=== PATIENT | female | born 1995 | race Caucasian/White ===

== ENCOUNTER 2018-01-02 23:07 | Emergency (ER) | payer OTHER ==
[2018-01-02] MEDS ORDERED: ONDANSETRON 4 MG/2 ML VIAL IVP ONE (23:18)
[2018-01-02] MEDS ORDERED: NS 1,000 ML IV ONE (23:18)
[2018-01-02] MEDS ORDERED: HYDROmorphONE/DILAUDID 2 MG/ML INJ IVP ONE (23:18)
--- NOTE | 2018-01-02 23:18 | EDPHY ---
H & P Stated Complaint: PELVIC PAIN X 40 MIN Time Seen by Provider: 01/02/18 23:15 HPI/ROS: HPI CHIEF COMPLAINT: Sudden onset pelvic pain. HISTORY OF PRESENT ILLNESS: This patient very pleasant 22-year-old female she is otherwise healthy with no significant medical history, she has had an appendectomy, she presents emergency room with sudden onset severe 10/10 lower pelvic pain. She describes as sharp stabbing in nature. It was sudden onset approximately 45 min ago. She states she is on her menstrual cycle. Denies being . Denies chest pain or shortness of breath. The pain is located across her lower pelvis. Current level pain 8/10. Patient denies having intercourse. Denies vaginal discharge. Past Medical History: Denies significant medical history Past Surgical History: Denies significant surgical history except for appendectomy. Social History: Denies drugs alcohol tobacco products. Family History: Noncontributory ROS REVIEW OF SYSTEMS: A comprehensive 10 point review of systems is otherwise negative aside from elements mentioned in the history of present illness. Exam Constitutional appears well nontoxic no acute distress, triage nursing summary reviewed, vital signs reviewed, awake/alert. Eyes normal conjunctivae and sclera, EOMI, PERRLA. HENT normal inspection, atraumatic, moist mucus membranes, no epistaxis, neck supple/ no meningismus, no raccoon eyes. Respiratory clear to auscultation bilaterally, normal breath sounds, no respiratory distress, no wheezing. Cardiovascular rate normal, regular rhythm, no murmur, no edema, distal pulses normal. Gastrointestinal mild tender palpation in the pelvic region suprapubic and both adnexa,, no rebound, no guarding, normal bowel sounds, no distension, no pulsatile mass. Genitourinary no CVA tenderness. Musculoskeletal no midline vertebral tenderness, full range of motion, no calf swelling, no tenderness of extremities, no meningismus, good pulses, neurovascularly intact. Skin pink, warm, & dry, no rash, skin atraumatic. Neurologic awake, alert and oriented x 3, AAOx3, moves all 4 extremities equally, motor intact, sensory intact, CN II-XII intact, normal cerebellar, normal vision, normal speech. Psychiatric normal mood/affect. Heme/Lymph/Immune no lymphadenopathy. Differential diagnosis includes but is not limited to and in no particular order : Ruptured ovarian cyst, ovarian torsion, intra-abdominal free fluid Bowel obstruction, gallbladder disease, diverticulitis, colitis, enteritis, perforated viscus, gastritis, GERD, esophagitis, urinary tract infection, pyelonephritis, kidney stones Medical Decision Making: Plan for this patient IV establishment IV Dilaudid 1 mg for pain control, IV Zofran 4 mg for nausea, ultrasound of the pelvis, check basic blood work, test, re-evaluate. Re-evaluation: 0322: Patient re-evaluated this time resting comfortably abdomen is soft nontender. She is not vomiting. She states her pain is completely resolved. She would like to go home. I explained I do not have a great explanation for her sudden onset pelvic pain. She is not having intercourse she denies any vaginal discharge. She is currently on her menstrual cycle. On her ultrasound of her pelvis there is no evidence of significant free fluid or ruptured ovarian cyst. Dr. oRy read her ultrasound called to me states normal ultrasound. This was a transabdominal ultrasound done for pelvic pain as she is not having intercourse. Patient's blood work was reviewed. Additionally ultrasound reviewed. Blood work is reassuring urinalysis shows trace blood she is on her current menstrual cycle. She has had an appendectomy. I did discuss strict return precautions with her she feels comfortable going home. We talked about CT imaging however she has declined CT imaging at this time as her abdominal pain is gone. She does understand return emergency room she develops worsening abdominal pain fever vomiting. She has had an appendectomy. She feels comfortable this plan. Again return precautions discussed with her. It is possible that she ruptured a small ovarian cyst there is trace free fluid in the cul de sac: The ultrasound. Source: Patient - Personal History LMP (Females 10-55): Now Current Tetanus Diphtheria and Acellular Pertussis (TDAP): Yes - Medical/Surgical History Hx Asthma: No Hx Chronic Respiratory Disease: No Hx Diabetes: No Hx Cardiac Disease: No Hx Renal Disease: No Hx Cirrhosis: No Hx Alcoholism: No Hx HIV/AIDS: No Hx Splenectomy or Spleen Trauma: No Other PMH: APPENDECTOMY 2016, "CUT OUT PIECE OF INTESTINE" 2016 - Social History Smoking Status: Never smoked Constitutional: Initial Vital Signs Temperature (C) 36.3 C 01/02/18 23:14 Heart Rate 95 01/02/18 23:14 Respiratory Rate 20 01/02/18 23:14 Blood Pressure 135/83 H 01/02/18 23:14 O2 Sat (%) 99 01/02/18 23:14 O2 Delivery Mode Room Air Allergies/Adverse Reactions: No Known Allergies Allergy (Unverified 01/02/18 23:25) Home Medications: Medication Instructions Recorded NK [No Known Home Meds] 01/02/18 Medical Decision Making - Data Points Laboratory Results: Laboratory Results 01/02/18 23:29 01/02/18 23:29 01/03/18 01/02/18 01/02/18 00:48 23:29 23:29 WBC RBC Hgb Hct MCV MCH MCHC RDW Plt Count MPV Neut % (Auto) Lymph % (Auto) [place] % (Auto) Eos % (Auto) Baso % (Auto) Nucleat RBC Rel Count Absolute Neuts (auto) Absolute Lymphs (auto) Absolute Monos (auto) Absolute Eos (auto) Absolute Basos (auto) Absolute Nucleated RBC Immature Gran % Immature Gran # Sodium 140 mEq/L mEq/L (135-145) Potassium 3.7 mEq/L mEq/L (3.5-5.2) Chloride 103 mEq/L mEq/L (97-110) Carbon Dioxide 23 mEq/l mEq/l (22-31) Anion Gap 14 mEq/L mEq/L (8-16) BUN 9 mg/dL mg/dL (7-23) Creatinine 0.7 mg/dL mg/dL (0.6-1.0) Estimated GFR > 60 Glucose 89 mg/dL mg/dL (70-100) Calcium 9.3 mg/dL mg/dL (8.5-10.4) Total Bilirubin 0.4 mg/dL mg/dL (0.1-1.4) Conjugated Bilirubin 0.3 mg/dL mg/dL (0.0-0.5) Unconjugated Bilirubin 0.1 mg/dL mg/dL (0.0-1.1) AST 23 IU/L IU/L (14-46) ALT 34 IU/L IU/L (9-52) Alkaline Phosphatase 56 IU/L IU/L (38-126) Total Protein 7.9 g/dL g/dL (6.3-8.2) Albumin 4.6 g/dL g/dL (3.5-5.0) Lipase 169 IU/L IU/L (23-300) Beta HCG, Qual NEGATIVE Urine Color YELLOW Urine Appearance CLEAR Urine pH 7.0 (5.0-7.5) Ur Specific [place] 1.009 (1.002-1.030) Urine Protein NEGATIVE (NEGATIVE) Urine Ketones NEGATIVE (NEGATIVE) Urine Blood 2+ H (NEGATIVE) Urine Nitrate NEGATIVE (NEGATIVE) Urine Bilirubin NEGATIVE (NEGATIVE) Urine Urobilinogen NEGATIVE EU EU (0.2-1.0) Ur Leukocyte Esterase NEGATIVE (NEGATIVE) Urine RBC 15-25 /hpf H /hpf (0-3) Urine WBC 1-3 /hpf /hpf (0-3) Ur Epithelial Cells TRACE /lpf /lpf (NONE-1+) Urine Glucose NEGATIVE (NEGATIVE) 01/02/18 23:29 WBC 10.96 10^3/uL H 10^3/uL (3.80-9.50) RBC 5.15 10^6/uL 10^6/uL (4.18-5.33) Hgb 14.3 g/dL g/dL (12.6-16.3) Hct 43.1 % % (38.0-47.0) MCV 83.7 fL fL (81.5-99.8) MCH 27.8 pg L pg (27.9-34.1) MCHC 33.2 g/dL g/dL (32.4-36.7) RDW 13.7 % % (11.5-15.2) Plt Count 257 10^3/uL 10^3/uL (150-400) MPV 10.0 fL fL (8.7-11.7) Neut % (Auto) 48.1 % % (39.3-74.2) Lymph % (Auto) 36.7 % % (15.0-45.0) [place] % (Auto) 6.9 % % (4.5-13.0) Eos % (Auto) 7.0 % % (0.6-7.6) Baso % (Auto) 0.9 % % (0.3-1.7) Nucleat RBC Rel Count 0.0 % % (0.0-0.2) Absolute Neuts (auto) 5.27 10^3/uL 10^3/uL (1.70-6.50) Absolute Lymphs (auto) 4.02 10^3/uL H 10^3/uL (1.00-3.00) Absolute Monos (auto) 0.76 10^3/uL 10^3/uL (0.30-0.80) Absolute Eos (auto) 0.77 10^3/uL H 10^3/uL (0.03-0.40) Absolute Basos (auto) 0.10 10^3/uL 10^3/uL (0.02-0.10) Absolute Nucleated RBC 0.00 10^3/uL 10^3/uL (0-0.01) Immature Gran % 0.4 % % (0.0-1.1) Immature Gran # 0.04 10^3/uL 10^3/uL (0.00-0.10) Sodium Potassium Chloride Carbon Dioxide Anion Gap BUN Creatinine Estimated GFR Glucose Calcium Total Bilirubin Conjugated Bilirubin Unconjugated Bilirubin AST ALT Alkaline Phosphatase Total Protein Albumin Lipase Beta HCG, Qual Urine Color Urine Appearance Urine pH Ur Specific [place] Urine Protein Urine Ketones Urine Blood Urine Nitrate Urine Bilirubin Urine Urobilinogen Ur Leukocyte Esterase Urine RBC Urine WBC Ur Epithelial Cells Urine Glucose Medications Given: Discontinued Medications Hydromorphone HCl (Dilaudid) 1 mg IVP EDNOW ONE Stop: 01/02/18 23:19 Last Admin: 01/02/18 23:26 Dose: 1 mg Sodium Chloride (Ns) 1,000 mls @ 0 mls/hr IV EDNOW ONE; Wide Open PRN Reason: Protocol Stop: 01/02/18 23:19 Last Admin: 01/02/18 23:26 Dose: 1,000 mls Ondansetron HCl (Zofran) 4 mg IVP EDNOW ONE Stop: 01/02/18 23:19 Last Admin: 01/02/18 23:26 Dose: 4 mg Departure - Departure Disposition: Home, Routine, Self-Care Clinical Impression: Pelvic pain in female Condition: Good Instructions: Pelvic Pain (ED) Additional Instructions: 1. Return emergency room if he develops worsening abdominal pain fever vomiting. 2. [place] diet over the next 24-48 hours. No spicy fatty greasy foods. Referrals: KYLE HUYNH [Other] - As per Instructions
[2018-01-02 23:37] LABS: PLATELET COUNT 257 10^3/uL (150-400)
[2018-01-03 03:55] VITALS: BP 103/64; PULSE 62; RESP 16; TEMP 98.1; O2SAT 97
== END 2018-01-03 03:55 | disposition home or self-care (01) ==
DX: R10.2 Pelvic and perineal pain (principal); E86.9 Volume depletion, unspecified; Z90.89 Acquired absence of other organs
CPT/HCPCS: 96374; J1170; J2405